=== PATIENT | male | born 2000 | race Caucasian/White ===

== ENCOUNTER 2021-09-11 18:40 | Emergency (ER) | payer BC ==
[~2021-09-11] VITALS: Ht 190.5 cm; Wt 90.7 kg
[~2021-09-11 18:40] MED LIST: MOTRIN800 MG PO
== END 2021-09-11 20:34 | disposition home or self-care (01) ==
LOC: ED 18:40
DX: S93.601A Unspecified sprain of right foot, initial encounter (principal); W50.0XXA Accidental hit or strike by another person, initial encounter
CPT/HCPCS: 73610; 73630; 99283-25

== ENCOUNTER 2024-08-13 14:41 | Emergency (ER) | payer OTHER ==
[~2024-08-13] VITALS: Ht 190.5 cm; Wt 97.5 kg
[2024-08-13 17:41] VITALS: BP 134/87
== END 2024-08-13 17:44 | disposition home or self-care (01) ==
LOC: ED 14:41
DX: S66.322A Laceration of extensor muscle, fascia and tendon of right middle finger at wrist and hand level, initial encounter (principal); S61.210A Laceration without foreign body of right index finger without damage to nail, initial encounter; W31.89XA Contact with other specified machinery, initial encounter
CPT/HCPCS: 73140; 99283

== ENCOUNTER 2024-08-17 09:12 | Day surgery (SDC) | payer OTHER ==
[~2024-08-17] VITALS: Ht 190.5 cm; Wt 97.5 kg
[~2024-08-17 09:12] MED LIST changes: +CEFAZOLIN SODIUM 2 GM/20 ML SYR IV SCH; +IBLOOD GLUCOSE TEST STRIP 1 EA TEST VI PRN; +LACTATED RINGER'S 1,000 ML IV SCH; +LIDOCAINE HCL 1% 5 ML SDV INJ ONE
[2024-08-17 09:32] VITALS: BP 133/79
[2024-08-17] MEDS ORDERED: LIDOCAINE HCL 2% 5 ML SDV ONE (10:02)
[2024-08-17] MEDS ORDERED: propofoL 200 MG/20 ML VIAL ONE ×3 (10:02→11:26)
[2024-08-17] MEDS ORDERED: MIDAZOLAM HCL 2 MG/2 ML VIAL ONE (10:02)
[2024-08-17] MEDS ORDERED: Ropivacaine HCl 0.5% 30 ML VIAL ONE (10:02)
[2024-08-17] MEDS ORDERED: HYDROCODONE/ACETA 5/325 TAB PO PRN (10:45)
[2024-08-17] MEDS ORDERED: IBLOOD GLUCOSE TEST STRIP 1 EA TEST VI PRN (11:00)
[2024-08-17] MEDS ORDERED: PROCHLORPERAZINE EDISYLATE 10 MG/2 ML VIAL IV PRN (11:00)
[2024-08-17] MEDS ORDERED: droPERidol 5 MG/2 ML VIAL IV PRN (11:00)
[2024-08-17] MEDS ORDERED: fentaNYL citrate 50 MCG/ML SDV IV PRN (11:00)
[2024-08-17] MEDS ORDERED: HYDROmorphone HCL 1 MG/ML SYR IV PRN (11:00)
[2024-08-17] MEDS ORDERED: NALOXONE HCL 0.4 MG SYR IV PRN (11:00)
[2024-08-17] MEDS ORDERED: ondansetron HCL 4 MG/2 ML VIAL IV PRN (11:00)
[2024-08-17] MEDS ORDERED: ondansetron HCL 4 MG/2 ML VIAL ONE (11:27)
[2024-08-17] MEDS ORDERED: LACTATED RINGER'S 1,000 ML IV ONE (11:31)
[2024-08-17] MEDS ORDERED: HYDROCODON-ACE1 EA10 PO (11:45)
[2024-08-17] MEDS ORDERED: CELECOXIB200 MG PO (11:46)
--- NOTE | 2024-08-17 11:59 | NUR ---
08/17/24 Helen See PATIENT IS AWAKE. HOB IS ELEVATED. ICED WATER IS GIVEN. PATIENT IS DRINKING THAT AND TOLERATING IT WELL.
[2024-08-17 12:17] VITALS: BP 117/75
[2024-08-17] MEDS ORDERED: CELECOXIB 200 MG CAP PO SCH (17:00)
--- NOTE | 2024-08-18 07:36 | OR ---
[facility] [place] [facility] [address] [place] [address] Signed DATE OF OPERATION: 08/17/2024 SURGEON: Jennifer Isaacs MD PREOPERATIVE DIAGNOSIS: Extensor tendon laceration, left middle finger. POSTOPERATIVE DIAGNOSIS: Extensor tendon laceration, left middle finger. PROCEDURE PERFORMED: Extensor tendon repair, left middle finger. CAR AUDIO INSTALLER: Romelia Castillo PA-C. Romelia was present and critical for all portions of procedure. ANESTHESIA: Conscious sedation with digital block. BLOOD LOSS: Minimal. TOURNIQUET TIME: 20 minutes. IMPLANTS: 1.25 K-wire. BRIEF HISTORY: Reji is a 23-year-old gentleman, who injured his finger by lacerating the dorsum of the finger just proximal to the DIP joint. He had no active extension in the ER. He was referred to us for surgical intervention. Risks, benefits, and alternatives of repair were discussed with him and he elected to proceed. DESCRIPTION OF OPERATION: Once consent was obtained, he was taken to the operating room. After adequate anesthesia, he was placed on the operating room table with a hand table. The hand was prepped and draped in a standard sterile fashion. A gloved finger was used to create a tourniquet and the prior laceration was then extended distally and proximally. Electronically Signed By: JENNIFER ISAACS MD 08/18/24 0736 PATIENT NAME: REJI ROSS OPERATIVE REPORT DATE OF : [birth year] REPORT #: [id number] PHYSICIAN: JENNIFER ISAACS MD PCP: JAGRUTI CLEMONS PAC REPORT IS CONFIDENTIAL AND NOT TO BE RELEASED WITHOUT AUTHORIZATION [facility] [address] [place] [address] Signed Dissection underneath revealed the transverse laceration of the distal stump which was intact. The proximal stump, however, was quite thin and in poor condition. We were able to reapproximate both the ends by hyperextending the finger. The finger was then held in a hyperextension position with the longitudinal pin. The extensor tendons ends were then repaired using a six-strand repair with 4-0 Supramid suture. A 2nd suture was placed on the ulnar side. The peritenon was then repaired as best we could use 5-0 nylon and the wound was copiously irrigated. The skin was then closed with 3-0 nylon and dressed with Allevyn and rolled gauze. He tolerated the procedure well. All sponge, needle, and instrument counts were correct. Jennifer Isaacs MD BA/HELENL /[id number] Copies: ~ Electronically Signed By: JENNIFER ISAACS MD 08/18/24 0736 PATIENT NAME: REJI ROSS OPERATIVE REPORT DATE OF : 01 REPORT #: [id number] PHYSICIAN: JENNIFER ISAACS MD PCP: JAGRUTI CLEMONS PAC REPORT IS CONFIDENTIAL AND NOT TO BE RELEASED WITHOUT AUTHORIZATION
== END 2024-08-17 12:33 | disposition home or self-care (01) ==
LOC: DS 09:12
PROVIDERS: ATTEND Specialist
PROC: 0LQ70ZZ Repair Right Hand Tendon, Open Approach (ICD-10-PCS; principal; 2024-08-17 11:15)
DX: S66.322A Laceration of extensor muscle, fascia and tendon of right middle finger at wrist and hand level, initial encounter (principal)
CPT/HCPCS: 01810; J0690; J2003; J2250; J2405; J2704; J2795; J7121